=== PATIENT | male | born 1975 | race Caucasian/White ===

== ENCOUNTER 2017-10-31 08:28 | Emergency (ER) | payer MEDICAID ==
[~2017-10-31] VITALS: Ht 177.8 cm; Wt 81.6 kg
[2017-10-31 08:29] VITALS: BP_SYST 131
[2017-10-31] MEDS ORDERED: LIDOCAINE 1% 10 MG/ML, 20 ML MDV IJ ONE (08:45)
[2017-10-31] MEDS ORDERED: DIPH-TET-PERTUS Vaccine 0.5 ML VIAL (ADACEL) IM ONE (08:45)
[2017-10-31] MEDS ORDERED: BACITRACIN 1 GM OINT TP ONE (08:45)
[2017-10-31] MEDS ORDERED: CEFAZOLIN 1 GM IVPB PREMIX 50 ML IV ONE (09:45)
[2017-10-31 10:35] VITALS: BP_SYST 128
== END 2017-10-31 10:35 | disposition home or self-care (01) ==
LOC: SED 08:28
DX: S63.287A Dislocation of proximal interphalangeal joint of left little finger, initial encounter (principal); G51.0 Bell's palsy; S61.217A Laceration without foreign body of left little finger without damage to nail, initial encounter; W01.0XXA Fall on same level from slipping, tripping and stumbling without subsequent striking against object, initial encounter; Y93.01 Activity, walking, marching and hiking; Y92.89 Other specified places as the place of occurrence of the external cause; Y99.8 Other external cause status
CPT/HCPCS: 12001; 26770; 73130; 90471; 90715; 96365; 99284; J0690; J2001

== ENCOUNTER 2018-01-30 14:10 | Emergency (ER) | payer SELFPAY ==
[~2018-01-30] VITALS: Ht 177.8 cm; Wt 77.1 kg
[2018-01-30 14:10] VITALS: BP_SYST 144
[2018-01-30 15:04] LABS: HEMOGLOBIN 13.7 g/dL (14.0-18.0); MEAN CORPUSCULAR HEMOGLOBIN 30 pg (27-31)
[2018-01-30 15:13] LABS: CALCIUM 8.7 mg/dL (8.4-11.0); CREATININE 0.81 mg/dL (0.55-1.30); POTASSIUM 3.8 mmol/L (3.5-5.1)
[2018-01-30 15:17] LABS: INR 0.9 (0.80-1.20); PROTHROMBIN TIME 8.9 SECS (9.5-12.5)
[2018-01-30 15:18] LABS: ALBUMIN 3.1 g/dL (3.4-4.8); HEMATOCRIT 41.4 % (36-54); MEAN CORPUSCULAR HGB CONC 33 % (32-36); MEAN CORPUSCULAR VOLUME 91 fL (79.0-98.0); PLATELET COUNT (AUTO) 251 K/uL (130-430); RED BLOOD CELL COUNT(AUTO) 4.57 MIL/uL (4.2-6.2); RED CELL DISTRIBUTION WIDTH 14.8 % (9.0-15.0); TOTAL BILIRUBIN 0.1 mg/dL (0.0-1.0); WHITE BLOOD COUNT (AUTO) 15.2 K/uL (4.8-10.8)
[2018-01-30 16:05] LABS: ATYPICAL LYMPHOCYTES % 0 % (0-0); BAND % (MANUAL) 4 % (0-6); BASOPHILS % (MANUAL) 0 % (0-2); EOSINOPHILS % (MANUAL) 2 % (0-7); LYMPHOCYTES % (MANUAL) 15 % (20-46); MONOCYTES % (MANUAL) 5 % (0-11)
[2018-01-30] MEDS ORDERED: cefTRIAXone 1 GM in LIDOCAINE 1%, 20 ML MDV 2.1 ML IM ONE (16:15)
[2018-01-30 16:36] VITALS: BP_SYST 135
== END 2018-01-30 16:36 | disposition home or self-care (01) ==
LOC: SED 14:10
DX: J02.9 Acute pharyngitis, unspecified (principal); M79.1 Myalgia; F17.200 Nicotine dependence, unspecified, uncomplicated
CPT/HCPCS: 36415; 80053; 83605; 85007; 85027; 85610; 85730; 96372; 99285; J0696; J2001

== ENCOUNTER 2019-03-11 10:24 | Inpatient (IN) | payer MEDICAID ==
[~2019-03-11] VITALS: Ht 182.9 cm; Wt 90.3 kg
[2019-03-11 10:25] VITALS: BP_SYST 115
[2019-03-11] MEDS ORDERED: NACL 0.9% 1,000 ML IV ONE ×2 (10:30→11:45)
[2019-03-11] MEDS ORDERED: ONDANSETRON HCL 4 MG/2 ML VIAL IVP ONE (10:30)
--- NOTE | 2019-03-11 10:30 | NUR ---
BROUGHT IN BY [facility]S [facility] [address] PLACED IN BED #1 AND TRIAGED, REPORT GIVEN TO JADYN
--- NOTE | 2019-03-11 10:40 | NUR ---
pt bib by sqaud [facility] for a drug OD. Pt is currently on a nonrebreather mask. O2 sat is 95%. Pt received 4mg of Narcan IM on the scene. Pt is awake and is able to verbalize. Will continue to monitor.
--- NOTE | 2019-03-11 10:50 | NUR ---
ANNE Humphrey at bedside examining patient.
--- NOTE | 2019-03-11 10:55 | NUR ---
Zofran 4mg and NS bolus given per MD order.
--- NOTE | 2019-03-11 10:58 | NUR ---
EKG done at the bedside.
[2019-03-11 11:18] LABS: BASOPHILS # (AUTO) 0.2 K/uL (0.0-0.2); BASOPHILS % (AUTO) 1.6 % (0.0-2.0); EOSINOPHILS # (AUTO) 0.3 K/uL (0.0-0.4); EOSINOPHILS % (AUTO) 3.4 % (0.0-4.0); HEMATOCRIT 43.4 % (36-54); HEMOGLOBIN 14.6 g/dL (14.0-18.0); LYMPHOCYTES # (AUTO) 2.3 K/uL (1.0-5.5); LYMPHOCYTES % (AUTO) 23.1 % (20.5-51.5); MEAN CORPUSCULAR HEMOGLOBIN 30 pg (27-31); MEAN CORPUSCULAR HGB CONC 34 % (32-36); MEAN CORPUSCULAR VOLUME 90 fL (79.0-98.0); NEUTROPHILS # (AUTO) 6.1 K/uL (1.8-7.7); NEUTROPHILS % (AUTO) 61.9 % (40.0-70.0); PLATELET COUNT (AUTO) 223 K/uL (130-430); RED BLOOD CELL COUNT(AUTO) 4.84 MIL/uL (4.2-6.2); RED CELL DISTRIBUTION WIDTH 13.4 % (9.0-15.0); WHITE BLOOD COUNT (AUTO) 9.8 K/uL (4.8-10.8)
[2019-03-11 11:31] LABS: CALCIUM 8.6 mg/dL (8.4-11.0); CREATININE 0.86 mg/dL (0.55-1.30); POTASSIUM 3.2 mmol/L (3.5-5.1)
[2019-03-11 11:37] LABS: ALBUMIN 3.8 g/dL (3.4-4.8); TOTAL BILIRUBIN 0.7 mg/dL (0.0-1.0)
[2019-03-11 11:44] LABS: BILIRUBIN,URINE NEGATIVE (NEGATIVE); BLOOD, URINE TRACE (NEGATIVE); CLARITY/URINE SL HAZY (CLEAR); COLOR,URINE YELLOW (YELLOW); GLUCOSE,URINE NEGATIVE (NEGATIVE); KETONES,URINE NEGATIVE (NEGATIVE); LEUKOCYTE ESTERASE ,URINE NEGATIVE (NEGATIVE); NITRITE, URINE NEGATIVE (NEGATIVE); PROTEIN URINE 1+ (NEGATIVE)
[2019-03-11] MEDS ORDERED: POTASSIUM CHLORIDE 10 MEQ TAB.PRT.SR PO ONE (11:45)
[2019-03-11 11:51] LABS: WBC,URINE 0-3 /HPF (0-3)
[2019-03-11 11:52] LABS: BACTERIA,URINE FEW /HPF (None Seen); HYALINE CASTS, URINE 0-10 /LPF (None Seen)
[2019-03-11 11:55] LABS: BENZODIAZEPINE, URINE POSITIVE (NEG <=150); CANNABINOID, URINE POSITIVE (NEG <=50); METHAMPHETAMINES SCREEN,URINE POSITIVE (NEG <=500); OPIATE, URINE POSITIVE (NEG <=100); URINE AMPHETAMINE POSITIVE (NEG <=500)
[2019-03-11 11:56] LABS: BARBITURATE, URINE NEGATIVE (NEG <=200); COCAINE, URINE NEGATIVE (NEG <=150); PHENCYCLIDINE SCREEN,URINE NEGATIVE (NEG <=25); UR TRICYCLIC ANTIDEPRESSANTS NEGATIVE (NEG <=300); URINE METHADONE NEGATIVE (NEG <=200); URINE OXYCODONE SCREEN NEGATIVE (NEG <=100); URINE PROPOXYPHENE SCREEN NEGATIVE (NEG <=300)
--- NOTE | 2019-03-11 12:00 | NUR ---
medicated the pt with K-dur 30mEq and a second bolus of ND per MD order.
--- NOTE | 2019-03-11 13:00 | NUR ---
# 22 gauge angiocath placed to left hand. Use of asceptic technique. Opsite placed over site. Blood return noted. Blood for lab drawn from site. Flushed with 10 cc of normal saline. No evidence of infiltration noted. Patient tolerated well. pt pulled out his prior IV
--- NOTE | 2019-03-11 14:20 | NUR ---
Patient will be admitted to care of Dr. Kelly. Admitted to tele unit. Will go to room 114-b. Belongings list completed. Summary report printed. Report will be given at bedside.
--- NOTE | 2019-03-11 14:25 | NUR ---
ADMIT NOTE Received pt from ER to the floor with a diagnosis of Overdose. Admission process initiated. patient oriented to pain management, safety and call light-teach back done.
[2019-03-11 14:40] VITALS: BP_SYST 119
[2019-03-11 16:00] VITALS: BP_SYST 118
--- NOTE | 2019-03-11 16:28 | NUR ---
Patient is resting at this time. No signs of distress noted.
[2019-03-11] MEDS: KCL 20 mEq in NS 1000 mL 1,000 ML IV SCH (17:07)
--- NOTE | 2019-03-11 18:46 | NUR ---
DR. COLE WAS CALLED ABOUT PATIENT'S CONDITIONS. SHE GAVE ORDERS. WILL BE CARRIED OUT.
[2019-03-11] MEDS ORDERED: COMMUNICATION ORDER XX ONE (19:00)
[2019-03-11] MEDS ORDERED: IBUPROFEN 400 MG TABLET PO ONE (19:00)
[2019-03-11] MEDS ORDERED: NICOTINE 21 MG/24 HR PATCH.TD24 TD ONE (19:00)
[2019-03-11] MEDS ORDERED: chlordiazePOXIDE HCL 25 MG CAPSULE PO ONE (19:15)
--- NOTE | 2019-03-11 19:25 | NUR ---
OPENING NOTES RECEIVED PATIENT IN BED AAO X4. BREATHING UNLABORED ON ROOM AIR. DENIES ANY PAIN. IVF INFUSING WITH IV LINE INTACT TO RFA. BED IN LOWEST LOCKED POSITION WITH ALARM ON. CALL LIGHT WITH IN REACH.
[2019-03-11 20:17] VITALS: BP_SYST 123
[2019-03-11] MEDS ORDERED: IBUPROFEN 400 MG TABLET PO PRN (21:30)
[2019-03-11] MEDS ORDERED: LORazepam 2 MG/ML VIAL IVP PRN (21:30)
--- NOTE | 2019-03-11 21:30 | NUR ---
ROUNDS PATIENT RESTING IN BED. NO DISTRESS NOTED. VITAL SIGNS STABLE.
--- NOTE | 2019-03-12 | NUR ---
ROUNDS PATIENT RESTING I BED. BREATHING UNLABORED ON ROOM AIR. IVF INFUSING. CALL LIGHT WITH IN REACH.
--- NOTE | 2019-03-12 03:26 | NUR ---
ROUNDS PATIENT RESTING IN BED. NO DISTRESS NOTED. IVF INFUSING.
[2019-03-12] MEDS: KCL 20 mEq in NS 1000 mL 1,000 ML IV SCH (05:28)
[2019-03-12 05:30] VITALS: BP_SYST 142
--- NOTE | 2019-03-12 06:00 | NUR ---
[facility] PATIENT PROVIDED WITH NEW GOWN. PATIENT BED CHUX CHANGED.
--- NOTE | 2019-03-12 06:53 | NUR ---
CLOSING NOTES PATIENT RESTING IN BED. BREATHING UNLABORED. IVF INFUSING WITH IV LINE INTACT. PATIENT NEEDS ATTENDED. BED IN LOWEST LOCKED POSITION WITH ALARM ON. CALL LIGHT WITH IN REACH.
[2019-03-12 07:40] LABS: ALBUMIN 3.2 g/dL (3.4-4.8); CALCIUM 8.3 mg/dL (8.4-11.0); CREATININE 0.82 mg/dL (0.55-1.30); POTASSIUM 4.3 mmol/L (3.5-5.1); THYROID STIMULATING HORMONE 0.68 uIu/mL (0.36-3.74)
[2019-03-12 08:03] VITALS: BP_SYST 124
[2019-03-12] MEDS ORDERED: BANANA IV SCH ×3 (09:00)
[2019-03-12] MEDS ORDERED: FAMOTIDINE 20 MG TABLET PO SCH (09:00)
[2019-03-12] MEDS ORDERED: MVI IV SCH ×3 (09:00)
[2019-03-12] MEDS ORDERED: FOLIC ACID IV SCH ×3 (09:00)
[2019-03-12] MEDS ORDERED: NACL 0.9% IV SCH ×3 (09:00)
[2019-03-12] MEDS ORDERED: NICOTINE 21 MG/24 HR PATCH.TD24 TD SCH (09:00)
[2019-03-12] MEDS ORDERED: MAGNESIUM SULFATE 1 GM, THIAMINE HCL 100 MG in NS 100 ML IV SCH (09:00)
[2019-03-12] MEDS ORDERED: chlordiazePOXIDE HCL 25 MG CAPSULE PO SCH (09:00)
--- NOTE | 2019-03-12 09:05 | NUR ---
Neuro/mobility Patient alert/oriented x4 denies any pain , ambulated patient to hallway steady gait no dizziness.
--- NOTE | 2019-03-12 09:15 | NUR ---
AMA: Patient does not wish to proceed with medical care recommended by Dr. Kelly. Patient given information related to possible complications, up to and including , which could occur as a result of leaving hospital at this time. Patient verbalizes understanding of risks involved leaving against medical advice. Patient has signed AMA form.
--- NOTE | 2019-03-12 09:25 | NUR ---
Discharged against medical advice ambulatory ,saline marcy removed pressure dressing applied . patient lives 10 minutes walking distance from the hospital with all the belongings taken , security vehicle patrol officer Darren , nursing quality assurance supervisor chassis Silke informed,admitting doctor paged.
== END 2019-03-12 09:25 | disposition left against medical advice (07) | DRG 816 ==
LOC: SED 10:24 → STU 13:27
PROVIDERS: ADMIT Internal Medicine; ATTEND Internal Medicine
DX: T40.1X1A Poisoning by heroin, accidental (unintentional), initial encounter (principal); G92 Toxic encephalopathy; T43.621A Poisoning by amphetamines, accidental (unintentional), initial encounter; E87.6 Hypokalemia; G51.0 Bell's palsy; Z53.21 Procedure and treatment not carried out due to patient leaving prior to being seen by health care provider; Y92.89 Other specified places as the place of occurrence of the external cause; Z79.899 Other long term (current) drug therapy; F10.229 Alcohol dependence with intoxication, unspecified
CPT/HCPCS: 36415; 80053; 80307; 81000-TC; 83735-TC; 84443-TC; 85025; 96374; 99291; G0378; G0482; J2405; J3411; J3475; J3480; J3490; J7030